=== PATIENT | male | born 2000 ===

== ENCOUNTER → 2019-04-24 | Outpatient (CLI) | payer OTHER ==
--- NOTE | 2019-04-24 15:54 | PCVCIMAG ---
APPROVED REPORT Study performed: 04/24/2019 14:38:03 EXAM: Comprehensive 2D, Doppler, and color-flow Echocardiogram Patient Location: Echo lab Status: routine BSA: 1.75 HR: 65 bpmBP: 104/60 mmHg Rhythm: NSR Other Information Study Quality: Adequate Indications Murmur Bradycardia Chest Pain 2D Dimensions IVSd: 6.35 (7-11mm) LVDd: 44.32 mm PWd: 6.35 (7-11mm) LVDs: 27.82 (25-40mm) Left Atrium: 29.58 (27-40mm) Aortic Root: 22.30 mm LV Single Plane 4CH: 54.13 % LV Single Plane 2CH: 58.00 % Biplane EF: 56.2 % Volumes Left Atrial Volume (Systole) Single Plane 4CH: 32.44 mLSingle Plane 2CH: 44.81 mL LA ESV Index: 22.00 mL/m2 Aortic Valve AoV Peak Pérez.: 1.19 m/s AO Peak Gr.: 5.68 mmHgLVOT Max P.97 mmHg LVOT Max V: 1.00 m/s Mitral Valve E/A Ratio: 2.0 MV Decel. Time: 242.24 ms MV E Max Pérez.: 0.75 m/s MV A Pérez.: 0.37 m/s IVRT: 72.66 ms Pulmonary Valve PV Peak Pérez.: 1.24 m/sPV Peak Gr.: 6.14 mmHg Pulmonary Vein P Vein S: 0.35 m/s P Vein D: 0.58 m/s P Vein S/D Ratio: 0.60 Tricuspid Valve TR Peak Pérez.: 2.40 m/s TR Peak Gr.: 23.13 mmHg TV Vmax: 0.52 m/s Left Ventricle The left ventricle is normal size. There is normal LV segmental wall motion. There is normal left ventricular wall thickness. Left ventricular systolic function is normal. The left ventricular ejection fraction is within the normal range. LVEF is 55-60%. The left ventricular diastolic function is normal. Right Ventricle The right ventricle is normal size. The right ventricular systolic function is normal. Atria The left atrium size is normal. The right atrium size is normal. Aortic Valve The aortic valve is normal in structure. No aortic regurgitation is present. There is no aortic valvular stenosis. Mitral Valve The mitral valve is normal in structure. Trace mitral regurgitation. No evidence of mitral valve stenosis. Tricuspid Valve The tricuspid valve is normal in structure. Mild tricuspid regurgitation with PAP of 28 mmHg. Pulmonic Valve The pulmonary valve is normal in structure. Trace pulmonic regurgitation. Great Vessels The aortic root is normal in size. IVC is normal in size and collapses >50% with inspiration. Pericardium There is no pericardial effusion. There is no pleural effusion. <Conclusion> The left ventricle is normal size. There is normal left ventricular wall thickness. Left ventricular systolic function is normal. The left ventricular diastolic function is normal. The right ventricle is normal size. The left atrium size is normal. The right atrium size is normal. The aortic valve is normal in structure. Trace mitral regurgitation. Mild tricuspid regurgitation.
--- NOTE | 2019-04-24 16:08 | PCVCIMAG ---
APPROVED REPORT Patient Location: Echo lab Room #: Stress Nurse: Madelaine Lainez RN Treadmill Stress Test Indications- chest pain, bradycardia, murmur The patient exercised according to the JENNY protocol for 14:06 mins; achieving a work level of 17.2 METS. The resting heart rate of 59 bpm mame to a maximum heart rate of 200 bpm. This value represent 100% of the maximal, age-predicted heart rate. The resting blood pressure of 104/60 mmHg, mame to a maximum blood pressure of 138/60 mmHg. The exercise test was stopped due to fatigue and dyspnea. No chest pain. Conclusion 1. Clinical response, nonischemic. 2. Stress ECG response, nonischemic. 3. Exercise capacity, superior.
== END | disposition home or self-care (01) ==
LOC: PCVCIMAG 14:54
PROVIDERS: ATTEND Internal Medicine Cardiovascular Disease
DX: I07.1 Rheumatic tricuspid insufficiency (principal); R01.1 Cardiac murmur, unspecified; R00.1 Bradycardia, unspecified; R07.9 Chest pain, unspecified
CPT/HCPCS: 93017; 93306